=== PATIENT | female | born 1990 | race Caucasian/White ===

== ENCOUNTER 2017-10-30 08:20 | Emergency (ER) | payer BC ==
[~2017-10-30] VITALS: Ht 149.9 cm; Wt 54.5 kg
[~2017-10-30 08:20] MED LIST: NORCO 325 MG-51 TAB PO; ZOLOFT
[2017-10-30] MEDS ORDERED: FLUOXETINE40 MG PO (08:34)
[2017-10-30] MEDS ORDERED: MICROGESTIN 1.51 TAB PO (08:35)
[2017-10-30] MEDS ORDERED: DEXTROAMPH SACC10 M1 PO (08:35)
[2017-10-30] MEDS ORDERED: NORCO 325 MG-51 TA1 PO (09:11)
[2017-10-30] MEDS ORDERED: AMOXICILLIN 50500 MG PO (09:11)
[2017-10-30 09:26] VITALS: BP 115/72
== END 2017-10-30 09:32 | disposition home or self-care (01) ==
LOC: ED 08:20
DX: M26.621 Arthralgia of right temporomandibular joint (principal)

== ENCOUNTER 2017-11-07 20:11 | Emergency (ER) | payer BC ==
[~2017-11-07] VITALS: Ht 124.5 cm; Wt 54.5 kg
[~2017-11-07 20:11] MED LIST changes: +AMOXICILLIN 50500 MG PO; +DEXTROAMPH SACC10 M1 PO; +FLUOXETINE40 MG PO; +MICROGESTIN 1.51 TAB PO; +NORCO 325 MG-51 TA1 PO
[2017-11-07] MEDS ORDERED: TRAMADOL 50 MG TAB PO (20:21)
[2017-11-07] MEDS ORDERED: CYCLOBENZ5 MG PO (20:21)
[2017-11-07] MEDS ORDERED: PREDNISONE20 MG PO (20:22)
[2017-11-07] MEDS ORDERED: KETOROLAC10 MG PO (21:02)
[2017-11-07] MEDS ORDERED: NORCO 325 MG-51 TA1 PO (21:02)
[2017-11-07 21:11] VITALS: BP 146/88
== END 2017-11-07 21:10 | disposition home or self-care (01) ==
LOC: ED 20:11
DX: K08.89 Other specified disorders of teeth and supporting structures (principal); M26.621 Arthralgia of right temporomandibular joint; F17.200 Nicotine dependence, unspecified, uncomplicated; F32.9 Major depressive disorder, single episode, unspecified
CPT/HCPCS: J1885

== ENCOUNTER 2018-03-05 09:53 | Emergency (ER) | payer BC ==
[~2018-03-05] VITALS: Ht 149.9 cm; Wt 54.5 kg
[~2018-03-05 09:53] MED LIST changes: +CYCLOBENZ5 MG PO; +KETOROLAC10 MG PO; +PREDNISONE20 MG PO; +TRAMADOL 50 MG TAB PO
[2018-03-05] MEDS ORDERED: NORCO 325 MG-51 TA1 PO (10:30)
[2018-03-05] MEDS ORDERED: AMOXICILLIN 50500 MG PO (10:30)
[2018-03-05 10:50] VITALS: BP 114/80
== END 2018-03-05 10:55 | disposition home or self-care (01) ==
LOC: ED 09:53
DX: K03.81 Cracked tooth (principal)

== ENCOUNTER 2019-09-28 01:12 | Emergency (ER) | payer SELFPAY ==
[2019-09-28 01:16] VITALS: BP 117/64
[2019-09-28] MEDS ORDERED: JUNEL 1.5 MG-31 EACH PO (01:20)
[2019-09-28] MEDS ORDERED: CITALOPRAM40 MG PO (01:20)
[2019-09-28] MEDS ORDERED: KLONOPIN 0.5MG0.5 MG PO (01:20)
[2019-09-28] MEDS ORDERED: AMOXIL500 M1 PO (01:46)
== END 2019-09-28 01:50 | disposition home or self-care (01) ==
LOC: ED 01:12
DX: J03.90 Acute tonsillitis, unspecified (principal); F41.9 Anxiety disorder, unspecified; F32.9 Major depressive disorder, single episode, unspecified; F98.8 Other specified behavioral and emotional disorders with onset usually occurring in childhood and adolescence